=== PATIENT | male | born 1950 | race Caucasian/White ===

== ENCOUNTER → 2020-12-06 | Outpatient (CLI) | payer MEDICARE, OTHER ==
--- NOTE | 2020-12-06 13:40 | Diagnostic Imaging Report ---
INDICATION: Congestion and shortness of breath. COMPARISON: 09/08/2007. FINDINGS: The heart size is normal. There is patchy scarring or atelectasis in the lung bases. There is no pleural effusion or pneumothorax. The mediastinum is unremarkable. IMPRESSION: Patchy scarring and/or subsegmental atelectasis and/or pneumonitis in the lung bases. Mild COPD. Dictated by: Dictated on workstation # [id number]
== END ==
LOC: RAD 11:12
PROVIDERS: ATTEND Family Medicine
DX: R06.02 Shortness of breath (principal); R09.81 Nasal congestion
CPT/HCPCS: 71046

== ENCOUNTER → 2020-12-20 | Outpatient (CLI) | payer MEDICARE, OTHER ==
--- NOTE | 2020-12-20 14:53 | Diagnostic Imaging Report ---
EXAMINATION: Chest 2 view HISTORY: PNEUMONIA COMPARISON: 12/06/2020 FINDINGS: Heart size and pulmonary vasculature are normal. Stable patchy interstitial opacities seen throughout both lungs. Stable blunting of the costophrenic angles. No pneumothorax. Degenerative changes of the thoracic spine. Osseous structures are otherwise intact. IMPRESSION: 1. Trace bilateral pleural effusions with patchy interstitial opacities of both lungs, unchanged from 12/06/2020. Dictated by: Dictated on workstation # [id number]
== END ==
LOC: RAD 10:11
PROVIDERS: ATTEND Family Medicine
DX: J18.9 Pneumonia, unspecified organism (principal)
CPT/HCPCS: 71046

== ENCOUNTER → 2021-02-16 | Outpatient (CLI) | payer MEDICARE, OTHER ==
[~2021-02-16] MED LIST: AMLO-250 PO; ASCO-262 PO; ASPI-1238 PO; ATOR10TA66 PO; CARV3.122 PO; CHOL10004 PO; CLOP75TA28 PO; FURO20TA4 PO; GLIM4TAB5 PO; HYDR25TA4 PO; PANT40TA52 PO; POTA-160 PO; RT-ALBUINH IH; SACU1TAB2 PO; ZINC50TA58 PO
== END ==
LOC: CARD 12:47
PROVIDERS: ATTEND Physician Assistant
DX: I08.0 Rheumatic disorders of both mitral and aortic valves (principal); I11.9 Hypertensive heart disease without heart failure; I25.10 Atherosclerotic heart disease of native coronary artery without angina pectoris
CPT/HCPCS: 93306

== ENCOUNTER 2021-03-08 09:24 | Outpatient (RCR) | payer MEDICARE, OTHER | END 2021-03-17 | disposition home or self-care (01) | LOC: CR 09:24 | PROVIDERS: ATTEND Internal Medicine Cardiovascular Disease | DX: I25.5 Ischemic cardiomyopathy (principal); I25.10 Atherosclerotic heart disease of native coronary artery without angina pectoris; I50.20 Unspecified systolic (congestive) heart failure | CPT/HCPCS: 93798 ==

== ENCOUNTER → 2021-04-17 | Outpatient (RCR) | payer MEDICARE, OTHER | END | disposition home or self-care (01) | LOC: CR 03-20 09:28 | PROVIDERS: ATTEND Internal Medicine Cardiovascular Disease | DX: I25.5 Ischemic cardiomyopathy (principal); I25.10 Atherosclerotic heart disease of native coronary artery without angina pectoris; I50.20 Unspecified systolic (congestive) heart failure | CPT/HCPCS: 93798 ==

== ENCOUNTER → 2021-04-24 | Outpatient (CLI) | payer MEDICARE, OTHER | LOC: CARD 09:00 | PROVIDERS: ATTEND Physician Assistant | DX: I08.0 Rheumatic disorders of both mitral and aortic valves (principal); I11.9 Hypertensive heart disease without heart failure; I25.10 Atherosclerotic heart disease of native coronary artery without angina pectoris | CPT/HCPCS: 93306 ==

== ENCOUNTER 2021-05-05 10:04 | Day surgery (SDC) | payer MEDICARE, OTHER ==
[~2021-05-05] VITALS: Ht 165 cm; Wt 83.7 kg
[2021-05-05] MEDS ORDERED: LIDOCAINE 1% INJ 20 ML VIAL ONE (10:10)
[2021-05-05] MEDS ORDERED: HEParin (CATH LAB) 1,000 ML IV ONE (10:10)
[2021-05-05] MEDS ORDERED: ceFAZolin INJECTION 1,000 MG VIAL IV ONE (10:15)
[2021-05-05] MEDS ORDERED: NS IV 1000 ML 1,000 ML IV SCH ×2 (10:15→13:00)
[2021-05-05 10:26] VITALS: BP 151/105
--- NOTE | 2021-05-05 10:35 | Diagnostic Imaging Report ---
INDICATION: Evaluation prior to pacemaker placement. TECHNIQUE: Single view chest 10:20 AM. CORRELATION STUDY: 01/05/2021 FINDINGS: Heart size is borderline enlarged but relatively stable. Vasculature within normal limits. Mild calcification of the aortic arch. The lungs are clear with no consolidating infiltrate. There is no significant effusion or pneumothorax. IMPRESSION: 1. Borderline cardiac enlargement without failure. Dictated by: Dictated on workstation # [id number]
[2021-05-05 10:38] LABS: HEMATOCRIT 51 % (40-54); HEMOGLOBIN 16.8 g/dL (13.3-17.7); MEAN CORPUSCULAR HEMOGLOBIN 29 pg (25-34); MEAN CORPUSCULAR HGB CONC 33 g/dL (32-36); MEAN CORPUSCULAR VOLUME 88 fL (80-99); MEAN PLATELET VOLUME 9.4 fL (9.0-12.2); PLATELET COUNT 191 10^3/uL (130-400); WHITE BLOOD COUNT 8.5 10^3/uL (4.3-11.0)
[2021-05-05] MEDS ORDERED: NS (IVPB) 50 ML ONE (10:40)
--- NOTE | 2021-05-05 10:42 | Conscious Sedation/ASA ---
Conscious Sedation Pre-Proced Time 10:42 ASA Score 3 For ASA 3 and 4: Consider anesthesia and medical clearance. Also, for patients with a history of failed moderate sedation consider anesthesia. Airway Lungs Heart ASA score ASA 1: a normal healthy patient ASA 2: a patient with a mild systemic disease (mid diabetes, controlled hypertension, obesity x ASA 3: a patient with a severe systemic disease that limits activity (angina, COPD, prior Myocardial infarction) ASA 4: a patient with an incapacitating disease that is a constant threat to life (CHF, renal failure) ASA 5: a moribund patient not expected to survive 24 hrs. (ruptured aneurysm) ASA 6: a declared brain- patient whose organs are being harvested. For emergent operations, add the letter E after the classification Mallampati Classification Grade 3 Sedation Plan Analgesia, Amnesia, Plan communicated to team members, Discussed options with patient/fam, Discussed risks with patient/fam The patient is an appropriate candidate to undergo the planned procedure, sedation, and anesthesia. The patient immediately re-assessed prior to indication. CLEO MORA MD May 05, 2021 10:42
[2021-05-05 10:47] LABS: INR 1.1 (0.8-1.4); PROTHROMBIN TIME PATIENT 14.2 SEC (12.2-14.7)
[2021-05-05] MEDS ORDERED: MIDAZOLAM 5 MG/5 ML (VERSED) VIAL ONE ×2 (10:56→11:40)
[2021-05-05] MEDS ORDERED: fentaNYL INJ 100 MCG/2 ML AMP ONE ×2 (10:56→11:40)
[2021-05-05 10:59] LABS: ALBUMIN 4.2 GM/DL (3.2-4.5); BILIRUBIN,TOTAL 0.8 MG/DL (0.1-1.0); CALCIUM 9.5 MG/DL (8.5-10.1); CREATININE SERUM 1.32 MG/DL (0.60-1.30); POTASSIUM 4.1 MMOL/L (3.6-5.0); TOTAL PROTEIN 7.8 GM/DL (6.4-8.2)
[2021-05-05] MEDS ORDERED: FURO20TA4 PO (11:05)
[2021-05-05] MEDS ORDERED: SPIR25TA PO (11:05)
[2021-05-05] MEDS ORDERED: CALC-250 PO (11:05)
[2021-05-05] MEDS ORDERED: CLOP75TA69 PO (11:05)
[2021-05-05] MEDS ORDERED: PANT40TA52 PO (11:05)
[2021-05-05] MEDS ORDERED: EMPA10TA PO (11:05)
[2021-05-05] MEDS ORDERED: CARV12.53 PO (11:05)
[2021-05-05] MEDS ORDERED: ZINC220T3 PO (11:05)
[2021-05-05] MEDS ORDERED: SACU1TAB2 PO (11:05)
[2021-05-05] MEDS ORDERED: ASCO-262 PO (11:05)
[2021-05-05] MEDS ORDERED: NS IV 1000 ML 1,000 ML ONE (11:11)
[2021-05-05 11:26] LABS: BILIRUBIN,URINE NEGATIVE (NEGATIVE); CLARITY,URINE CLEAR; COLOR,URINE YELLOW; GLUCOSE, URINE (UA) 3+ (NEGATIVE); KETONES,URINE NEGATIVE (NEGATIVE); LEUKOCYTE ESTERASE ,URINE NEGATIVE (NEGATIVE); NITRITE,URINE NEGATIVE (NEGATIVE); PH,URINE 6.5 (5-9); PROTEIN,URINE TRACE (NEGATIVE)
[2021-05-05 11:41] LABS: BACTERIA,URINE NEGATIVE /HPF
[2021-05-05] MEDS ORDERED: proPOfol 200 MG/20 ML (DIPRIVAN) VIAL IV ONE (11:41)
--- NOTE | 2021-05-05 12:58 | Cardiology Post Procedure Note ---
Post-Procedure Note Physician (s)/Urban Forester (s) Physician CLEO MORA MD Pre-Procedure Diagnosis Pre-Procedure Diagnosis: Congestive heart failure Post-Procedure Note Procedure Start Date: May 05, 2021 Name of Procedure: Implantation of dual-chamber pacemaker/ICD DFT testing Findings/Procedure Note PRIMARY PHYSICIAN: REFERRING PHYSICIAN: NEURODIAGNOSTIC TECH: Cleo Mora INDICATION: Congestive heart failure, chronic compensated left ventricular systolic dysfunction, primary prevention PREOPERATIVE DIAGNOSES: Congestive heart failure POSTOPERATIVE DIAGNOSES: Chronic compensated left ventricular systolic dysfunction, implantation for ICD for primary prevention HISTORY: ICD implantation is recommended. PROCEDURE PERFORMED: 1. Dual-chamber ICD implantation. 2. DFT testing. COMPLICATIONS: None. ESTIMATED BLOOD LOSS: 20 mL. SPECIMENS: None. ANESTHESIA: Conscious sedation. ORAL ANTICOAGULATION: None. FLUOROSCOPY TIME: FLUOROSCOPY DOSE: CONTRAST DOSE: PROCEDURE DETAILS: After all the questions were answered, an informed consent was taken. All the risks and complication were explained in detail. The patient was brought to the label stitcher. The patient's right and left chest was prepped and draped in the usual sterile fashion. A 2-inch horizontal incision was made 1 cm below the clavicle and dissection carried down to the pectoralis fascia. IV antibiotics were administered prior to first incision. Under fluoroscopic guidance, access was gained in the axillary vein and a regular J-wire was placed. We then introduced a sheath into the axillary vein. A ICD lead was inserted. This is a single-coiled ICD lead. The RV lead was inserted across the tricuspid valve to an apical septal portion of the RV. The lead position was checked in CZECH and SOTELO view. The screw was deployed and lead connected to the c programmer. Good sensing and pacing thresholds were obtained. Diaphragmatic pacing was ruled out. The lead was secured with 2-0 Vicryl nonabsorbable sutures. The lead was secured to the underlying muscle and fascia. Atrial lead was advanced and placed at the left atrial appendage, secured, tested with good sensing and capture activity. We then took an ICD generator and the leads were connected to the device in a hermetic fashion. The device and it was placed in the pocket. Aggressive irrigation with normal saline solution was done. Interrogation of the device revealed good integrity of the leads and connection. The wound was closed using 2 layers. The first layer was an interrupted 2-0 Vicryl. The second layer was an uninterrupted 4-0 Vicryl suture. Half inch Steri-Strips and a small dressing was then applied to the wound. DFT testing was done with anesthesia support. The induction mechanism was a T- shock. The first T-shock was at 300 milliseconds at one joule. Ventricular fibrillation was noted, the device has good sensing, charged and delivered single shock with 30 J and it was successful in terminating the episode. DEVICE INFORMATION: OPAL GARCIA [id number] RA LEAD [id number] RV LEAD [id number] INTRAOPERATIVE DEVICE TESTING: Good sensing and capture activity DEVICE INTERROGATION IMMEDIATELY POSTOP: Right atrium, threshold 0.4 at 1 V, impedance 475, P wave 2.25 Right ventricle, threshold 0.4 at 0.3 V, impedance 380, R wave 6.1 PLAN: The patient will be observed for 23 hours. We will continue with two more dosages of IV antibiotics. We will check a chest x-ray and interrogate the device in the morning. An EKG will be done as well. If everything checks out, the patient will be discharged tomorrow. CONCLUSION: 1. Successful implantation of dual-chamber ICD/pacemaker with no complication 2. Successful DFT testing with no complication FINAL DIAGNOSIS: Congestive heart failure, chronic compensated left ventricular systolic dysfunction, nonischemic cardiomyopathy Coronary artery disease Hyperlipidemia Anesthesia Type: Conscious Sedation Estimated blood loss (mL): 10 ML Post-Procedure Diagnosis Post-operative diagnosis: Congestive heart failure, chronic compensated left ventricular systolic dysfunction, nonischemic cardiomyopathy Coronary artery disease Hyperlipidemia CLEO MORA MD May 05, 2021 12:58
[2021-05-05] MEDS ORDERED: PATIENT MAY USE OWN MEDS, ALL PO SCH (13:00)
--- NOTE | 2021-05-05 14:32 | Diagnostic Imaging Report ---
INDICATION: Post pacemaker placement. TECHNIQUE: Single view chest 1:22 p.m. CORRELATION STUDY: 05/05/2021. FINDINGS: A left-sided dual-lead pacemaker has been placed since the prior. Proximal lead with a slight J appearance over the region of the right atrium and distal lead over the ventricular floor. Heart size is enlarged but stable. Vascularity is slightly increased. The lungs are clear with no consolidating infiltrate. There is no significant effusion or pneumothorax. Small amount of subcutaneous gas over the left axilla. IMPRESSION: 1. Interval placement of left-sided pacemaker without evidence of post-procedure complication. Vascularity, however, appears to be slightly more accentuated from prior. Dictated by: Dictated on workstation # [id number]
[2021-05-05] MEDS: ceFAZolin INJECTION 1,000 MG in NS (IVPB) 50 ML IV SCH (17:23)
[2021-05-05] MEDS ORDERED: GLIMEPIRIDE 4 MG (AMARYL) TAB PO SCH (18:00)
[2021-05-05] MEDS: GLIMEPIRIDE 4 MG (AMARYL) TAB PO SCH (18:34)
[2021-05-05] MEDS: ACETAMINOPHEN 500 MG TAB (TYLENOL) PO PRN ×2 (18:49→23:46)
[2021-05-05] MEDS: SACUBITRIL/VALSARTAN 24/26 MG (ENTRESTO) TABLET PO SCH (20:43)
[2021-05-05] MEDS ORDERED: AtorvaSTATin TABLET 10 MG TABLET PO SCH (21:00)
[2021-05-05] MEDS ORDERED: SACUBITRIL/VALSARTAN 24/26 MG (ENTRESTO) TABLET PO SCH (21:00)
[2021-05-06] MEDS: ceFAZolin INJECTION 1,000 MG in NS (IVPB) 50 ML IV SCH ×2 (01:51→09:00)
[2021-05-06] MEDS ORDERED: CEFU500T63 PO (07:32)
--- NOTE | 2021-05-06 07:33 | Discharge Inst-Post CATH ---
Discharge Inst-CATH/EP Problems Reviewed?: Yes Post Cardiac Cath/EP D/C Inst Follow Up/Plan Appointment with Dr Evans in 1-2 weeks <b>CARDIAC CATH/EP PROCEDURE DISCHARGE INSTRUCTIONS</b> ACTIVITY * Go Home directly and rest. * Limit activity of the leg (or wrist if it was used) for 7 days including aerobics, swimming, jogging, bicycling, etc. * Restrict stair-climbing for 7 days if possible, if not, climb up with your non-cath leg, then bring together on the same step. * Avoid lifting, pushing, pulling or excessive movement of the affected extremity for 7 days. * Customary sexual activity may be resumed after 2 days-use caution not to use a position that strains or causes pain to the affected extremity. * No driving for 24 hours. * NO SMOKING. * Avoid straining for bowel movements for 7 days. * Gentle walking on level ground is allowed. * Returning to work will depend on the type of procedure and the results. Your doctor will discuss this with you. CALL YOUR DOCTOR FOR ANY OF THE FOLLOWING: *If bleeding from the puncture site occurs- Apply gentle pressure to site with clean cloth and call your doctor or EMS. * If a knot or lump forms under the skin, increases in size, or causes pain. * If bruising appears to be worsening or moving further down your leg instead of disappearing. * Temperature above 101 F. CARE OF YOUR GROIN INCISION; * Bruising or purple discoloration of the skin near the puncture site is common. * You may shower only, no bathtub bathing for 5 days. Be careful to avoid slipping as your leg may feel stiff. * If a closure device was used on your femoral artery, please see the attached guide regarding care of the device and your leg. * Leave dressing on FOR 24 hours. CARE OF YOUR WRIST INCISION; * Bruising or purple discoloration of the skin near the puncture site is common. * You may shower. * DO NOT submerge wrist. * Leave dressing on FOR 24 hours. CLEO EVANS MD May 06, 2021 07:33
[2021-05-06] MEDS: SACUBITRIL/VALSARTAN 24/26 MG (ENTRESTO) TABLET PO SCH (08:25)
[2021-05-06] MEDS: GLIMEPIRIDE 4 MG (AMARYL) TAB PO SCH (08:33)
[2021-05-06] MEDS ORDERED: SPIRONOLACTONE 25 MG (ALDACTONE) TAB PO SCH ×2 (09:00)
[2021-05-06] MEDS ORDERED: CLOPIDOGREL 75 MG (PLAVIX) TABLET PO SCH ×2 (09:00)
[2021-05-06] MEDS ORDERED: PANTOPRAZOLE 40 MG (PROTONIX) TAB PO SCH ×2 (09:00)
[2021-05-06] MEDS ORDERED: EMPAGLIFLOZIN 10 MG TABLET (JARDIANCE) PO SCH ×2 (09:00)
--- NOTE | 2021-05-06 09:43 | Cardiology Progress Note ---
Subjective Date Seen by Provider: May 06, 2021 Time Seen by Provider: 09:41 Subjective/Events-last exam Patient is laying down in bed, feeling better. No new complaint, mild itching at the pacemaker site Review of Systems General: No Chills, No Night Sweats, No Fatigue, No Malaise, No Appetite, No Other HEENT: No Head Aches, No Visual Changes, No Eye Pain, No Ear Pain, No Dysphasia, No Sinus Congestion, No Post Nasal Drip, No Sore Throat, No Other Pulmonary: No Dyspnea, No Cough, No Pleuritic Chest Pain, No Other Cardiovascular: No: Chest Pain, Palpitations, Orthopnea, Paroxysmal Noc. Dyspnea, Edema, Lt Headedness, Other Objective-Cardiology Exam Last Set of Vital Signs Vital Signs 05/06/21 05/06/21 07:45 09:00 Temp 36.2 Pulse 73 Resp 13 B/P (MAP) 119/79 Pulse Ox 96 O2 Delivery Room Air I&O Intake and Output 05/06/21 00:00 Intake Total 1000 ml Balance 1000 ml IV Total 1000 ml General: Alert, Oriented X3, Cooperative HEENT: Atraumatic, PERRLA Neck: Supple, No JVD, No Thyromegaly Lungs: Clear to Auscultation, Normal Air Movement Heart: Regular Rate, Normal S1, Normal S2, No Murmurs Abdomen: Normal Bowel Sounds, Soft, No Tenderness, No Hepatosplenomegaly, No Masses Extremities: No Clubbing, No Cyanosis, No Edema, Normal Pulses, No Tenderness/Swelling Skin: No Rashes, No Breakdown, No Significant Lesion Neuro: Normal Gait, Normal Speech, Strength at 5/5 X4 Ext, Normal Tone, Sensation Intact Psych/Mental Status: Mental Status NL, Mood NL Results Lab Laboratory Tests 05/05/21 10:31 A/P-Cardiology Admission Diagnosis Congestive heart failure Hypertension Hyperlipidemia Permanent pacemaker/ICD Assessment/Plan Congestive heart failure, chronic compensated left ventricular systolic dysfunction, nonischemic cardiomyopathy, continue current medication Status post dual-chamber ICD implantation for primary prevention. DFT testing was done. Hypertension, controlled, monitor blood pressure Hyperlipidemia, monitor lipids CLEO MORA MD May 06, 2021 09:43
== END 2021-05-06 10:46 | disposition home or self-care (01) ==
LOC: CATH 10:04 → CSD 13:58 → CATH 05-06 10:46
PROVIDERS: ATTEND Internal Medicine Cardiovascular Disease
DX: I11.0 Hypertensive heart disease with heart failure (principal); I50.22 Chronic systolic (congestive) heart failure; I42.8 Other cardiomyopathies; I25.10 Atherosclerotic heart disease of native coronary artery without angina pectoris; E78.5 Hyperlipidemia, unspecified; E11.9 Type 2 diabetes mellitus without complications; I65.23 Occlusion and stenosis of bilateral carotid arteries; Z79.84 Long term (current) use of oral hypoglycemic drugs; Z79.82 Long term (current) use of aspirin; Z79.899 Other long term (current) drug therapy
CPT/HCPCS: 33249; 71045; 80053; 80061; 81000; 85027; 85610; 85730; 87081; 93005; 93641; C1721; C1895; C1898; 36415